=== PATIENT | female | born 1980 | race Caucasian/White ===

== ENCOUNTER 2017-05-20 08:50 | Outpatient (CLI) | payer OTHER ==
[~2017-05-20] VITALS: Ht 162.6 cm; Wt 60.5 kg
[2017-05-20 10:35] VITALS: BP 134/76; Ht 162.6 cm; Wt 60.5 kg
[2017-05-20 10:51] LABS: HCG URINE NEGATIVE (NEGATIVE)
[2017-05-20 11:26] LABS: BASOPHILS 0.2 % (0-2); EOSINOPHILS 1.5 % (0-7); IMMATURE GRANULOCYTES 0.2 % (0-5); LYMPHOCYTES 29.4 % (15-50); MCHC 34.1 g/dL (31.0-37.0); MONOCYTES 9.2 % (2-11); NEUTROPHILS 59.5 % (40-80); PLATELET COUNT 136 10x3/uL (130-400); RBC 4.66 10x6/uL (4.00-5.40); RDW 12.8 % (11.5-14.5); WBC 4.8 10x3/uL (4.8-10.8)
[2017-05-20 11:46] LABS: CALC OSMOLALITY 278 mosm/kg (275-300); CALCIUM 8.9 mg/dL (8.5-10.1); CARBON DIOXIDE 28.5 mmol/L (21.0-32.0); CHLORIDE - SERUM 106 mmol/L (98-107); CREATININE - SERUM 0.5 mg/dL (0.6-1.3); GLUCOSE 84 mg/dL (74-106); POTASSIUM - SERUM 3.7 mmol/L (3.5-5.1); SODIUM 141 mmol/L (136-145); UREA NITROGEN 9 mg/dL (7-18); eGFR NON AFRICAN AMERICAN > 90 mL/min (90-120)
[2017-05-20 11:47] LABS: APTT 30.1 SECONDS (22.8-39.4); INR 1.03 (0.85-1.17); PROTIME 13.3 SECONDS (11.6-15.0)
--- NOTE | 2017-05-20 13:30 | NUR ---
RIDE HERE FOR DISCHARGE. DISCHARGE INSTRUCTIONS GIVEN, VOICED UNDERSTANDING.
== END 2017-05-20 13:30 | disposition home or self-care (01) ==
LOC: D.RAD 08:50 → EDBD 11:00 → D.RAD 13:30
PROVIDERS: Otolaryngology; Specialist
DX: R59.0 Localized enlarged lymph nodes (principal); Z01.812 Encounter for preprocedural laboratory examination